=== PATIENT | female | born 1995 | race Two or more races ===

== ENCOUNTER 2016-12-16 16:50 | Observation (INO) | payer MEDICAID | END 2016-12-16 18:30 | disposition home or self-care (01) | DRG 566 | LOC: LDRP 16:50 | PROVIDERS: ADMIT Specialist; ATTEND Specialist | DX: O26.892 Other specified pregnancy related conditions, second trimester (principal); R10.9 Unspecified abdominal pain; Z3A.25 25 weeks gestation of pregnancy | CPT/HCPCS: 59025; 76815; 81002; G0378 ==